=== PATIENT | male | born 1945 | race Caucasian/White ===

== ENCOUNTER 2022-11-25 08:28 | Day surgery (SDC) | payer MEDICARE ==
[2022-11-21 10:33] LABS: BASOPHILS # (AUTO) 0.1 X10'3 (0-0.2); BASOPHILS % (AUTO) 1.1 % (0-1); EOSINOPHILS # (AUTO) 0.2 X10'3 (0-0.9); EOSINOPHILS % (AUTO) 2.7 % (0-6); LYMPHOCYTES # (AUTO) 1.9 X10'3 (1.1-4.8); LYMPHOCYTES % (AUTO) 26.3 % (21-51); MEAN CORPUSCULAR HEMOGLOBIN 29.7 PG (27.0-31.0); MEAN CORPUSCULAR HGB CONC 33.8 g/dL (33.0-36.5); MEAN CORPUSCULAR VOLUME 87.8 FL (78-98); MEAN PLATELET VOLUME 7.3 FL (7.4-10.4); MONOCYTES # (AUTO) 0.7 X10'3 (0-0.9); MONOCYTES % (AUTO) 8.8 % (2-12); NEUTROPHILS # (AUTO) 4.5 X10'3 (1.8-7.7); NEUTROPHILS % (AUTO) 61.1 % (42-75); PRE OP HEMATOCRIT 46.1 % (42.0-52.0); PRE OP HEMOGLOBIN 15.6 g/dL (14.0-17.9); PRE OP PLATELET COUNT 262 X10'3 (140-440); RED BLOOD COUNT 5.25 X10'6 (4.70-6.10); RED CELL DISTRIBUTION WIDTH 13.8 % (11.5-14.5)
[2022-11-21 10:44] LABS: ALBUMIN 3.8 G/DL (3.4-5.0); ALBUMIN/GLOBULIN RATIO 1.2 (1.1-1.5); ALKALINE PHOSPHATASE 76 IU/L (46-116); BLOOD UREA NITROGEN 12 MG/DL (7-18); BUN/CREATININE RATIO 13.2 (10.0-20.0); CALCIUM 9.1 MG/DL (8.5-10.1); CHLORIDE 105 MMOL/L (99-107); CREATININE 0.91 MG/DL (0.60-1.10); PRE OP ALT 41 U/L (30-65); PRE OP ANION GAP 7 (8-16); PRE OP AST 17 U/L (10-37); PRE OP BILIRUB, TOTAL 0.5 MG/DL (0.0-1.0); PRE OP GLUCOSE 98 MG/DL (70-104); PRE OP POTASSIUM 4.1 MMOL/L (3.4-5.1); PRE OP SODIUM 139 MMOL/L (135-145); TOTAL CARBON DIOXIDE 27.4 MMOL/L (24-32); TOTAL PROTEIN 7.1 G/DL (6.4-8.2); eGFR 81 ML/MIN
[~2022-11-25] VITALS: Ht 172.7 cm; Wt 100.7 kg
[2022-11-25] VITALS (10 sets, daily range): BP systolic 137–162; BP diastolic 70–87
[~2022-11-25 08:28] MED LIST: AMLO2.5T2 PO; CHOL200013 PO; EZET10TA6 PO; cefazolin 2gm/D5W 100mL 100 ML IV ONE; famotidine 20mg tablet PO ONE; ringers solution, lacted 1,000 ML IV SCH
[2022-11-25] MEDS ORDERED: ondansetron/PF 4mg/2ml inj IV PRN (08:55)
[2022-11-25] MEDS ORDERED: morphine 2 MG/ML inj. syringe IV PRN (08:55)
[2022-11-25] MEDS ORDERED: labetalol 20mg/4ml (5mg/ml) syringe IV PRN (08:55)
[2022-11-25] MEDS ORDERED: ringers solution, lacted 1,000 ML IV SCH (08:55)
[2022-11-25] MEDS ORDERED: morphine 4 MG/ML inj SYRINge IV PRN (08:55)
[2022-11-25] MEDS ORDERED: BUPIVAcaine/PF 2.5 mg/ml (0.25%) 30ml vial ONE (09:30)
[2022-11-25] MEDS ORDERED: fentaNYL/PF 50MCG/1 ML 2ML syringe ONE (09:36)
[2022-11-25] MEDS ORDERED: LIDOcaine 0.5% (5mg/ml) 50ml vial ONE (09:36)
[2022-11-25] MEDS ORDERED: MIDAZolam 1 MG/ML 5ML VIAL ONE (09:36)
[2022-11-25] MEDS ORDERED: LIDOcaine 2% (20mg/ml) 5ml vial ONE (09:37)
[2022-11-25] MEDS ORDERED: ketorolac trometh. 30mg/ml inj. ONE (09:37)
--- NOTE | 2022-11-25 10:25 | NUR ---
Received from OR via [facility], accompanied by Anesthesiologist DR BROWN and report given by Anesthesiologist AND VP [employer]. PT DROWSY, DENIES PAIN. LEFT ELBOW AND HAND/WRIST W/BIAS DRSG COVERING CDI. 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 Addendum: 11/25/22 at 1123 by Rafia Pope RN Amended: Links added.
--- NOTE | 2022-11-25 11:55 | NUR ---
PT UP AND ABLE TO AMBULATE SAFELY. D/C INSTRUCTIONS GIVEN AND GONE OVER W/PT AND PTS WHOM VERBALIZED UNDERSTANDING. PT D/CD TO HOME VIA W/C TO PRIVATE VEHICLE W/O INCIDENT. Addendum: 11/25/22 at 1216 by Rafia Pope RN Amended: Links added.
== END 2022-11-25 11:55 | disposition home or self-care (01) ==
LOC: PAS 08:28
PROVIDERS: ATTEND Orthopaedic Surgery Hand Surgery
DX: M77.12 Lateral epicondylitis, left elbow (principal); G56.02 Carpal tunnel syndrome, left upper limb; G56.22 Lesion of ulnar nerve, left upper limb; M19.071 Primary osteoarthritis, right ankle and foot; I10 Essential (primary) hypertension; E78.5 Hyperlipidemia, unspecified; E66.9 Obesity, unspecified; Z68.33 Body mass index [BMI] 33.0-33.9, adult; Z98.890 Other specified postprocedural states; Z85.828 Personal history of other malignant neoplasm of skin; Z79.899 Other long term (current) drug therapy
CPT/HCPCS: 24358; 36415; 64718; 64721; 80053; 82948; 85025; J0690; J1885; J2250; J3010; J3490; J7030; J7120; Z7506; Z7512; A4215; A4618; A6446; A6449; A7000